=== PATIENT | female | born 1980 | race Caucasian/White ===

== ENCOUNTER 2017-08-04 21:44 | Emergency (ER) | payer OTHER ==
[~2017-08-04] VITALS: Ht 154.9 cm; Wt 66.9 kg
[~2017-08-04 21:44] MED LIST: AZIT500T2 PO; CEPH-376 PO; FURO-93 PO; NIFE30TA PO; OXYC-302 PO; OXYC-307 PO; POTA20PA25 PO
[2017-08-04 21:46] VITALS: BP 114/79
[2017-08-04] MEDS ORDERED: LIDOCAINE 1%, 20ML ONE (22:06)
[2017-08-04] MEDS ORDERED: BUPIVACAINE 0.25% ONE (22:14)
== END 2017-08-04 22:56 | disposition home or self-care (01) ==
LOC: ED 22:07
DX: S61.300A Unspecified open wound of right index finger with damage to nail, initial encounter (principal); W26.0XXA Contact with knife, initial encounter; Y93.89 Activity, other specified; Y92.89 Other specified places as the place of occurrence of the external cause; Y99.8 Other external cause status
CPT/HCPCS: 64450

== ENCOUNTER 2017-11-16 14:40 | Observation (INO) | payer OTHER ==
[~2017-11-16] VITALS: Ht 154.9 cm; Wt 69.3 kg
[2017-11-16 15:44] LABS: ALANINE AMINOTRANSFERASE 22 U/L (12-78); ALBUMIN 4.1 g/dL (3.4-5.0); ANION GAP 7 mmol/L (5-15); CALCIUM 8.9 mg/dL (8.5-10.1); CHLORIDE 107 mmol/L (98-107); CREATININE 0.63 mg/dL (0.55-1.02)
[2017-11-16 15:48] LABS: ALKALINE PHOSPHATASE 105 U/L (45-117); BILIRUBIN,TOTAL 0.1 mg/dL (0.2-1.0); TOTAL PROTEIN 8.2 g/dL (6.4-8.2)
[2017-11-16 16:09] LABS: MICROSCOPIC AUTO
[2017-11-16 16:20] LABS: BASOPHILS # (AUTO) 0.03 x10^3/uL (0-0.1); BASOPHILS % (AUTO) 0 % (0-1); EOSINOPHILS # (AUTO) 0.15 x10^3/uL (0-0.4); EOSINOPHILS % (AUTO) 2 % (1-7); LYMPHOCYTES # (AUTO) 2.95 x10^3/uL (1-3.4); LYMPHOCYTES % (AUTO) 31 % (22-44); MD NO; MEAN CORPUSCULAR HEMOGLOBIN 30.8 pg (27.0-34.8); MEAN CORPUSCULAR HGB CONC 33.9 g/dL (32.4-35.8); MEAN CORPUSCULAR VOLUME 90.6 fL (80-100); MEAN PLATELET VOLUME 8.6 fL (7.4-10.4); MONOCYTES # (AUTO) 0.37 x10^3/uL (0.2-0.8); MONOCYTES % (AUTO) 4 % (2-9); NEUTROPHILS # (AUTO) 6.19 x10^3/uL (1.8-6.8); NEUTROPHILS % (AUTO) 64 % (42-75); PLATELET COUNT 318 x10^3/uL (130-400); RED BLOOD COUNT 4.65 x10^6/uL (3.82-5.3); RED CELL DISTRIBUTION WIDTH 12.4 % (9.6-15.2)
[2017-11-16 16:20] LABS: CULTURE INDICATED? NO
[2017-11-16] MEDS ORDERED: HYDROmorphone 1 MG/ML, 1ML IVPush PRN (16:30)
[2017-11-16] MEDS ORDERED: ONDANSETRON 2MG/ML, 2ML IVPush ONE ×2 (16:30→17:30)
[2017-11-16] MEDS ORDERED: SODIUM CHLORIDE 0.9% 1,000ML IVBOLUS ONE (16:30)
[2017-11-16] MEDS ORDERED: SODIUM CHLORIDE FLUSH 10ML SYR IVF ONE (16:30)
[2017-11-16] MEDS ORDERED: HYDROmorphone 2 MG/ML, 1ML ONE (16:33)
[2017-11-16] MEDS ORDERED: ONDANSETRON 2MG/ML, 2ML ONE ×3 (16:33→18:41)
[2017-11-16] MEDS ORDERED: CEFOTETAN PMX 1GM/50ML 50 ML IV ONE (18:00)
[2017-11-16] MEDS ORDERED: EPINEPHRINE 1 MG/ML, 1ML ONE (18:13)
[2017-11-16] MEDS ORDERED: BUPIVACAINE/PF 0.5% ONE (18:13)
[2017-11-16] MEDS ORDERED: MIDAZOLAM 1 MG/ML, 2ML ONE (18:27)
[2017-11-16] MEDS ORDERED: FENTANYL PF 250 MCG/5ML ONE (18:27)
[2017-11-16] MEDS ORDERED: DEXAMETHASONE 4 MG/ML, 1ML ONE (18:41)
[2017-11-16] MEDS ORDERED: SUCCINYLCHOLINE 20 MG/ML, 10ML ONE (18:41)
[2017-11-16] MEDS ORDERED: CEFOTETAN PMX 2GM/50ML 50 ML IVPB ONE (18:41)
[2017-11-16] MEDS ORDERED: PROPOFOL 10 MG/ML, 20ML ONE (18:41)
[2017-11-16] MEDS ORDERED: LABETALOL 5MG/ML, 20ML IV PRN (19:30)
[2017-11-16] MEDS ORDERED: ONDANSETRON 2MG/ML, 2ML IVPush PRN (19:30)
[2017-11-16] MEDS ORDERED: ALBUTEROL SULFATE 2.5 MG/3 ML NPPB PRN (19:30)
[2017-11-16] MEDS ORDERED: MEPERIDINE/PF 25MG/0.5ML IVPush PRN (19:30)
[2017-11-16] MEDS ORDERED: HYDROmorphone 1 MG/ML, 1ML IV PRN (19:30)
[2017-11-16] MEDS ORDERED: morphine SULFATE 10 MG/ML, 1ML IVPush PRN (19:30)
[2017-11-16] MEDS ORDERED: hydrALAzine 20 MG/ML, 1ML IV PRN (19:30)
[2017-11-16] MEDS ORDERED: ACETAMINOPHEN 325 MG TABLET PO PRN ×2 (19:30)
[2017-11-16] MEDS ORDERED: LORazepam 2 MG/ML, 1ML IVPush PRN (19:30)
[2017-11-16] MEDS ORDERED: PROMETHAZINE 25 MG/ML, 1ML IV PRN (19:30)
[2017-11-16] MEDS ORDERED: OXYcodone 5 MG/5 ML ORAL.SOL UDC PO PRN (19:30)
[2017-11-16] MEDS ORDERED: ACETAMINOPHEN 650 MG/20.3 ML UDC ONE (19:43)
[2017-11-16] MEDS ORDERED: OXYcodone 5 MG/5 ML ORAL.SOL UDC ONE (19:44)
[2017-11-16] MEDS ORDERED: FENTANYL PF 100 MCG/2ML ONE (19:44)
[2017-11-16] MEDS: FENTANYL PF 100 MCG/2ML IV PRN ×2 (19:47→19:56)
[2017-11-16] MEDS ORDERED: PROCHLORPERAZINE 5 MG/ML, 2ML IVPush PRN (22:00)
[2017-11-16] MEDS ORDERED: PROMETHAZINE 25 MG SUPP PR PRN (22:00)
[2017-11-16 23:21] VITALS: BP 114/78
[2017-11-17] MEDS: OXYcodone/APAP 7.5/325MG TABLET PO PRN ×3 (00:50→06:36)
[2017-11-17 02:00] VITALS: BP 116/70
[2017-11-17] MEDS: D5%-0.45NACL+KCL 20MEQ 1,000 ML IV SCH ×2 (02:26→05:27)
[2017-11-17 02:31] VITALS: BP 116/69
[2017-11-17 07:15] VITALS: BP 102/70
[2017-11-17] MEDS ORDERED: OXYC-306 PO (10:00)
[2017-11-17] MEDS ORDERED: PROM25TA10 PO (10:01)
== END 2017-11-17 10:12 | disposition home or self-care (01) ==
LOC: ED 17:24 → INTOOBSV 18:13 → EDIP 18:13 → 4NOR 20:26 → DCLOUNGE 11-17 09:59
PROVIDERS: ADMIT Surgery; ATTEND Surgery
DX: K81.1 Chronic cholecystitis (principal); K82.8 Other specified diseases of gallbladder; Z72.89 Other problems related to lifestyle
CPT/HCPCS: 36415; 47562; 74022; 76700; 80053; 81001; 83690; 84484; 84703; 85025; 88304; 96374; 96375; 96376; 99285; G0378; J0171; J0330; J1100; J1170; J2250; J2270; J2405; J2704; J3010; J3480; J3490; J7030; S0074; 96361

== ENCOUNTER 2019-02-18 22:40 | Emergency (ER) | payer OTHER ==
[~2019-02-18] VITALS: Ht 165.1 cm; Wt 64.0 kg
[~2019-02-18 22:40] MED LIST changes: +OXYC-306 PO; +PROM25TA10 PO
--- NOTE | 2019-02-18 22:55 | NUR ---
PT PRESENTS TO ED C/O DRINKING MORE ETOH THAN NORMAL PER REPORT. PT VOMITING ON SCENE AND GIVEN 4 MG ZOFRAN IV PER [facility]. DENIES GLF, HEAD TRAUMA, LOC. PT SLURRING SPEECH, BUT NEURO OTHERWISE INTACT. PT DRY HEAVING IN ED, BUT NO EMESIS NOTED. MONITOIRNG APPLIED. VSS. CALL LIGHT WITHIN REACH. AWAITING MD ASSESSMENT.
[2019-02-18] MEDS ORDERED: FAMOTIDINE 20 MG/2 ML IVPush ONE (23:00)
[2019-02-18] MEDS ORDERED: SODIUM CHLORIDE 0.9% 1,000 ML IV SCH (23:00)
[2019-02-18] MEDS ORDERED: FAMOTIDINE 20 MG/2 ML ONE (23:08)
--- NOTE | 2019-02-18 23:37 | NUR ---
PT NO LONGER DRY HEAVING IN ROOM. SPOUSE AT BEDSIDE. WCTM.
--- NOTE | 2019-02-19 01:17 | NUR ---
PT REPORT TO [facility].
--- NOTE | 2019-02-19 01:46 | NUR ---
PT SLEEPING. SPOUSE AT BEDSIDE. NAD. [facility].
--- NOTE | 2019-02-19 02:53 | NUR ---
PT REMAINS SLEEPING AT THIS TIME. VSS. NAD. SPOUSE AT BEDSIDE.
--- NOTE | 2019-02-19 04:34 | NUR ---
PT AWAKE AND ON THE CALL LIGHT. PT COMPLAINING OF RUQ ABD PAIN. PT STATES PAIN ALWAYS INCREASED POST EATING. PT STATES HX OF CHOLECYSTECTOMY AND RIGHT LUNG SURGERIES. MD INFORMED. MD AGREES TO RECHECK PATIENT.
[2019-02-19 05:28] VITALS: BP 102/63
== END 2019-02-19 05:32 | disposition home or self-care (01) ==
LOC: ED 23:55
DX: F10.220 Alcohol dependence with intoxication, uncomplicated (principal); Z88.0 Allergy status to penicillin; Z88.2 Allergy status to sulfonamides
CPT/HCPCS: 96361; 96374; 99283; J3490; J7030